=== PATIENT | female | born 1955 ===

== ENCOUNTER → 2018-04-10 21:25 | Outpatient (REF) | payer OTHER, SELFPAY ==
[2018-04-10 22:30] LABS: Free T3, Triiodothyronine Free 4.83 pg/mL (2.77-5.27); Free T4, Direct Thyroxine 1.14 ng/dL (0.78-2.19)
[2018-04-10 22:43] LABS: Thyroid Stimulating Hormone < 0.02 uIU/mL (0.47-4.68)
[2018-04-13 13:47] LABS: Triiodothyronine T3 Total 137 ng/dL (76-181)
[2018-04-15 14:04] LABS: Anti Thyroglobulin Antibody < 1 IU/mL (< 2); Thyroid Peroxidase Antibodies < 1 IU/mL (< 9)
== END ==
LOC: LAB 21:25
PROVIDERS: Visit Provider Naturopath
DX: E04.1 Nontoxic single thyroid nodule (principal)
CPT/HCPCS: 36415; 84439; 84443; 84479; 84480; 84481; 86376; 86800

== ENCOUNTER → 2018-05-08 20:53 | Outpatient (REF) | payer OTHER, SELFPAY ==
[2018-05-08 22:12] LABS: Free T3, Triiodothyronine Free 4.75 pg/mL (2.77-5.27)
[2018-05-08 22:20] LABS: Ferritin 77.4 ng/mL (11.1-264)
[2018-05-08 22:26] LABS: Thyroid Stimulating Hormone < 0.02 uIU/mL (0.47-4.68)
[2018-05-13 08:22] LABS: Anti Thyroglobulin Antibody < 1 IU/mL (< 2); Thyroid Peroxidase Antibodies < 1 IU/mL (< 9)
== END ==
LOC: LAB 20:53
PROVIDERS: Visit Provider Naturopath
DX: E05.90 Thyrotoxicosis, unspecified without thyrotoxic crisis or storm (principal)
CPT/HCPCS: 36415; 82728; 84439; 84443; 84481; 86376; 86800